=== PATIENT | male | born 1980 | race Caucasian/White ===

== ENCOUNTER 2016-05-31 13:59 | Emergency (ER) | payer OTHER ==
[~2016-05-31] VITALS: Ht 180.3 cm; Wt 106.5 kg
[~2016-05-31 13:59] MED LIST: AMOXICILLIN500 M1 PO; BACTRIM,SEPT1 TABLET PO; HYDROCHLOROTH12.5 MG PO; KEFLEX500 MG PO; MOBIC15 MG PO; NOHOMEMEDS; OXYCODONE HCL30 MG PO; SEROQUEL400 MG PO; ZESTRIL20 MG PO
[2016-05-31] MEDS ORDERED: BACTRIM,SEPT1 TABLET PO (16:20)
[2016-05-31] MEDS ORDERED: KEFLEX500 MG PO (16:20)
[2016-05-31] MEDS ORDERED: INDOCIN25 MG PO (16:20)
[2016-05-31 16:31] VITALS: BP 147/89
== END 2016-05-31 16:34 | disposition home or self-care (01) ==
LOC: EME 13:59
PROC: 0H9FXZZ Drainage of Right Hand Skin, External Approach (ICD-10-PCS; principal; 2016-05-31)
DX: L02.511 Cutaneous abscess of right hand (principal); L03.113 Cellulitis of right upper limb; I10 Essential (primary) hypertension; F17.200 Nicotine dependence, unspecified, uncomplicated
CPT/HCPCS: 99281; 99284; J1885

== ENCOUNTER 2016-07-15 20:33 | Emergency (ER) | payer OTHER ==
[~2016-07-15] VITALS: Ht 180.3 cm; Wt 103.2 kg
[~2016-07-15 20:33] MED LIST changes: +INDOCIN25 MG PO
[2016-07-15] MEDS ORDERED: BACTRIM,SEPT1 TABLET PO (22:23)
[2016-07-15 22:54] VITALS: BP 141/94
== END 2016-07-15 22:55 | disposition home or self-care (01) ==
LOC: EME 20:33
DX: L03.114 Cellulitis of left upper limb (principal); Z20.828 Contact with and (suspected) exposure to other viral communicable diseases
CPT/HCPCS: 99281; 99284

== ENCOUNTER 2016-07-18 02:44 | Emergency (ER) | payer OTHER ==
[~2016-07-18] VITALS: Ht 180.3 cm; Wt 103.5 kg
[2016-07-18] MEDS ORDERED: KEFLEX500 MG PO (05:16)
[2016-07-18 05:25] VITALS: BP 132/87
== END 2016-07-18 05:27 | disposition home or self-care (01) ==
LOC: EXP 02:44 → EME 02:44 → EXP 05:27
PROC: 0H9EXZZ Drainage of Left Lower Arm Skin, External Approach (ICD-10-PCS; principal; 2016-07-18)
DX: L02.414 Cutaneous abscess of left upper limb (principal); F17.200 Nicotine dependence, unspecified, uncomplicated
CPT/HCPCS: 87070; 87075; 87076; 87205; 99281; 99284